=== PATIENT | male | born 1945 | race Caucasian/White ===

== ENCOUNTER → 2018-07-22 | Outpatient (CLI) | payer MEDICARE, OTHER ==
[~2018-07-22] VITALS: Ht 180.3 cm; Wt 110.7 kg
[~2018-07-22] MED LIST: ALLOPURINOL 30300 M1 PO; ARICEPT 5 MG TAB5 MG PO; BENAZEPRIL HCL20 MG PO; CELEBREX 200 M200 M1 PO; CRESTOR20 MG PO; GEMFIBROZIL 60600 M1 PO; GLIPIZIDE ER5 MG PO; METFORMIN HCL500 MG PO; PLAVIX 75 MG TA75 M1 PO; SINEMET 25-1001 EAC1 PO
[2018-07-22 10:28] LABS: ABSOLUTE BASOPHILS 0.1 thou/uL (0.0-0.2); ABSOLUTE EOSINOPHILS 0.3 thou/uL (0.0-0.7); ABSOLUTE MONOCYTES 0.9 thou/uL (0.0-1.2); ABSOLUTE NEUTROPHILS 7.8 thou/uL (1.6-8.1); BASOPHILS 1.3 %; EOSINOPHILS 2.5 %; HEMATOCRIT 42.7 % (42.0-52.0); HEMOGLOBIN 14.5 gm/dL (14.0-18.0); MCH 31.1 pg (26.0-34.0); MCV 91.5 fL (80.0-100.0); MONOCYTES 8.4 %; MPV 7.2 fl. (7.2-11.1); NUCLEATED RBCS 0 /100WBC; PLATELET COUNT* 246 thou/uL (150-400); POLYS 69.8 %; RBC 4.66 mil/uL (4.50-6.00); RDW-CV 13.2 % (10.5-14.5); WBC 11.2 thou/uL (4.0-11.0)
[2018-07-22 10:42] LABS: ALBUMIN 4.1 g/dL (3.4-5.0); CALCIUM 9.6 mg/dL (8.5-10.1); CREATININE 0.9 mg/dL (0.6-1.3); POTASSIUM 3.9 mmol/L (3.5-5.1); TOTAL BILIRUBIN 0.6 mg/dL (<0.1-1.0); TOTAL PROTEIN 8.3 g/dL (6.4-8.2)
[2018-07-22 11:31] LABS: ESR (SEDRATE) 60 mm/hr (0-20)
[2018-07-23 02:09] LABS: GLYCOHEMOGLOBIN (HGB A1C) 5.8 % (4.8-5.6)
== END ==
LOC: M.SUR → M.LAB 08:00 → M.SUR 08-03 08:24 → EDSTATUS 08-03 09:10 → M.SUR 08-03 12:45
PROVIDERS: Orthopaedic Surgery
DX: M17.11 Unilateral primary osteoarthritis, right knee (principal); Z96.651 Presence of right artificial knee joint; Z79.899 Other long term (current) drug therapy

== ENCOUNTER 2018-07-23 17:38 | Inpatient (IN) | payer MEDICARE, OTHER ==
[~2018-07-23] VITALS: Ht 180.3 cm; Wt 110.7 kg
[~2018-07-23 17:38] MED LIST changes: -CELEBREX 200 M200 M1 PO
[2018-07-23 19:00] LABS: HEMATOCRIT 41.8 % (42.0-52.0); HEMOGLOBIN 14.5 gm/dL (14.0-18.0); MCH 31.6 pg (26.0-34.0); MCHC 34.6 g/dL (28.0-37.0); MCV 91.5 fL (80.0-100.0); MPV 7.3 fl. (7.2-11.1); RBC 4.57 mil/uL (4.50-6.00); RDW-CV 13.1 % (10.5-14.5); WBC 8.9 thou/uL (4.0-11.0)
[2018-07-23 19:08] LABS: CALCIUM 9.6 mg/dL (8.5-10.1); CREATININE 0.9 mg/dL (0.6-1.3); POTASSIUM 3.5 mmol/L (3.5-5.1); PROTIME 10.7 Seconds (9.20-11.50)
[2018-07-23 19:12] LABS: ALBUMIN 3.9 g/dL (3.4-5.0); TOTAL BILIRUBIN 0.5 mg/dL (<0.1-1.0); TOTAL PROTEIN 8.2 g/dL (6.4-8.2)
[2018-07-23 19:22] VITALS: BP 194/93
[2018-07-23 20:00] VITALS: BP 161/84
[2018-07-23 23:39] VITALS: BP 194/93
[2018-07-24 02:45] VITALS: BP 194/93
[2018-07-24 03:29] LABS: URINE BILIRUBIN NEGATIVE (Negative); URINE BLOOD TRACE (Negative); URINE CLARITY CLEAR; URINE COLOR YELLOW; URINE GLUCOSE-RANDOM NEGATIVE (Negative); URINE KETONES NEGATIVE (Negative); URINE LEUKOCYTES-REFLEX NEGATIVE (Negative); URINE NITRITE-REFLEX NEGATIVE (Negative); URINE PROTEIN NEGATIVE (Negative)
[2018-07-24 06:34] VITALS: BP 194/93
[2018-07-24 08:45] VITALS: BP 151/89
[2018-07-24 15:57] VITALS: BP 143/85
[2018-07-24 20:30] VITALS: BP 181/92
[2018-07-25 06:18] VITALS: BP 164/79
[2018-07-25 08:30] VITALS: BP 162/79
--- NOTE | 2018-07-25 14:55 | EKG ---
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
[2018-07-25 16:05] VITALS: BP 161/78
[2018-07-25 17:08] LABS: BF RBC 8409 /mm3; TOTAL CELL COUNT 3354 /mm3
[2018-07-25 17:35] LABS: CLARITY SLIGHTLY HAZY; COLOR AMBER; TOTAL VOLUME 3 ml
[2018-07-25 19:28] LABS: BF MONOCYTES 5 %; BF POLYS 81 %; BODY FLUID BANDS 2 %; SOURCE SYNOVIAL
[2018-07-25 19:29] LABS: BF EOSINOPHILS 2 %; BF LYMPHOCYTES 8 %; BF TISSUE 2 /100 WBC
[2018-07-25 21:00] VITALS: BP 161/70
--- NOTE | 2018-07-26 00:58 | CON ---
[facility] [address] [place] [address] CONSULTATION Name: NANCY JACKSON Room: [address] IN M.R.#: [id number] Admission: 07/23/18 Attend Phys: Maria Eugenia Shearer Discharge: Date of : 45 Report #: [id number] THIS REPORT FOR: //name// CC: Nik Lewis DATE OF SERVICE: 07/24/2018 CONSULTATION: Infectious Diseases. HISTORY OF PRESENT ILLNESS: Mr Jackson is a 73-year-old white male admitted to [facility] on 07/23/2018 because of concern regarding septic arthritis. The patient had degenerative joint disease and was scheduled for a total knee replacement later this month. He was preparing his house, moving some furniture so will be easier to get around with the wheelchair or a walker. He says he wrenched his knee first part of the week trying to move a dresser. The knee became more painful and swollen. He notified Dr. Bell who did an arthrocentesis. This demonstrated cloudy fluid with elevated white counts. The patient was admitted for arthroscopic washout and further evaluation. Infectious Disease consultation was requested to assist with antibiotic management. PAST MEDICAL HISTORY: Significant for diabetes with hypertension, hyperlipidemia, Parkinson's disease, COPD, sleep apnea, reflux, closed head injury. ALLERGIES: THE PATIENT HAS A HISTORY OF PENICILLIN ALLERGY. FAMILY HISTORY: Noncontributory. SOCIAL HISTORY: The patient is . 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 He does smoke cigarettes approximately 1 pack per day. I discussed with the patient benefits of smoking cessation associated with upcoming surgery with reduced infections and increased healing. I also discussed benefits of smoking for diabetic in terms of reducing risk of dialysis, amputation, stroke, heart disease. The patient seemed unimpressed and is committed to continued tobacco use. The patient uses social alcohol without problems. REVIEW OF SYSTEMS: The patient denies fevers, chills, sweats. Denies any head or neck complaints. No cough, chest pain, shortness of breath. He denies angina, syncope, palpitations. He denies nausea, vomiting, diarrhea, or constipation. He has not had a bowel movement since being in the hospital. He has been mostly n.p.o. for surgery. The patient denies any urinary complaints. He has postoperative pain in his leg. He says this feels different [place] [address] CONSULTATION Name: NANCY JACKSON Room: [address] IN [facility]#: [id number] Admission: 07/23/18 Attend Phys: Maria Eugenia Shearer Discharge: Date of : 45 Report #: [id number] PHYSICAL EXAMINATION: GENERAL: The patient appears alert, oriented, comfortable, not in any distress. VITAL SIGNS: Shows no fevers were measured during this hospitalization. SKIN: Shows no rash, no lesion. ENT: Negative. MENTAL STATUS: Seems normal. He had no tremor. HEART: Sounds normal. LUNGS: Clear. ABDOMEN: Belly obese, soft, not tender. No mass, no organomegaly. EXTREMITIES: Show some mild arthritic changes, particularly in his hands. The right knee was postoperative, wrapped in a multilayered dressing with a Hemovac drain, having small to moderate amount of bloody drainage. Distal lower extremity unremarkable. MEDICATION RECONCILIATION: The patient's current medication list is as follows: He is on lisinopril 30 mg daily, donepezil 5 mg daily, allopurinol 300 mg daily, metformin 500 mg b.i.d., glipizide 5 mg b.i.d., atorvastatin 20 mg b.i.d., Sinemet 1 tab b.i.d., gemfibrozil 600 mg b.i.d. and he has been treated with Rocephin and vancomycin for his infection. He has been prescribed a flu vaccine during this hospitalization. LABORATORY STUDIES: The white count was initially 11.2, is now down to 8.9, hemoglobin 14.5. Hemoglobin A1c is 5.8. Chemistries are normal except for glucose of 161. Rheumatoid factor is negative. CRP is elevated at 138. The blood cultures x 2 are negative. Urinalysis is negative. Synovial fluid from 07/23/2018 show white count of 25,000, 94% polys, no crystals. Gram stain showed moderate white cells and red cells, but no organisms. Cultures are pending. Nasal swab for MRSA is negative. In summary, the patient with fairly sudden increase in inflammation in the knee, which he attributes to twisting the knee moving furniture. He has a history of degenerative joint disease, a history of gout. At this time, I suggest we use vancomycin perioperatively pending results of cultures. If cultures are negative, this may be attributed just to a hemarthrosis associated with trauma and may be reasonable to stop the antibiotics and observe. If there is no infection, the patient may be a candidate for his knee replacement sooner. Should he have infectious arthritis of the [place] joint, he will need at least 4 weeks of IV antibiotics followed by 4 weeks of oral antibiotics and then 6 months of observation off antibiotics before implantation of hardware. I think it may be worthwhile to discuss further with the patient the benefits of tobacco cessation, particularly perioperatively. [facility] [address] [place] [address] CONSULTATION Name: NANCY JACKSON Room: [address] IN M.R.#: [id number] Admission: 07/23/18 Attend Phys: Maria Eugenia Shearer Discharge: Date of : 45 Report #: [id number] I appreciate the opportunity of input in the care of this gentleman. Thank you for requesting Infectious Disease input. <ELECTRONICALLY SIGNED> By: Nik Mariano MD 07/26/18 0058 1207 0145Nik Mariano MD /nt
[2018-07-26 03:57] LABS: ABSOLUTE BASOPHILS 0.1 thou/uL (0.0-0.2); ABSOLUTE EOSINOPHILS 0.4 thou/uL (0.0-0.7); ABSOLUTE LYMPHOCYTES 2.4 thou/uL (0.8-5.3); ABSOLUTE MONOCYTES 0.6 thou/uL (0.0-1.2); ABSOLUTE NEUTROPHILS 4.8 thou/uL (1.6-8.1); BASOPHILS 1.2 %; EOSINOPHILS 4.3 %; HEMATOCRIT 38.1 % (42.0-52.0); HEMOGLOBIN 13.2 gm/dL (14.0-18.0); LYMPHOCYTES 29.4 %; MCH 31.5 pg (26.0-34.0); MCHC 34.5 g/dL (28.0-37.0); MCV 91.2 fL (80.0-100.0); MONOCYTES 7.7 %; MPV 7.2 fl. (7.2-11.1); NUCLEATED RBCS 0 /100WBC; PLATELET COUNT* 268 thou/uL (150-400); POLYS 57.4 %; RBC 4.17 mil/uL (4.50-6.00); RDW-CV 12.9 % (10.5-14.5); WBC 8.3 thou/uL (4.0-11.0)
[2018-07-26 06:22] LABS: ESR (SEDRATE) 90 mm/hr (0-20)
[2018-07-26 07:01] VITALS: BP 154/85
[2018-07-26 20:00] VITALS: BP 178/86
[2018-07-27] VITALS: BP 169/85
[2018-07-27 04:00] VITALS: BP 167/87
[2018-07-27 08:00] VITALS: BP 166/80
[2018-07-27 16:00] VITALS: BP 169/73
[2018-07-27 20:20] VITALS: BP 172/88
[2018-07-28 09:53] VITALS: BP 156/77
[2018-07-28 14:15] VITALS: BP 155/76
[2018-07-28 17:00] VITALS: BP 167/77
[2018-07-28 20:20] VITALS: BP 162/78
[2018-07-29 04:52] LABS: HEMATOCRIT 34.7 % (42.0-52.0); MCH 31.2 pg (26.0-34.0); MCHC 34.7 g/dL (28.0-37.0); MPV 7.1 fl. (7.2-11.1); RBC 3.85 mil/uL (4.50-6.00); RDW-CV 13.1 % (10.5-14.5); WBC 9.6 thou/uL (4.0-11.0)
[2018-07-29 05:24] LABS: ALBUMIN 3.2 g/dL (3.4-5.0); CREATININE 0.8 mg/dL (0.6-1.3); MAGNESIUM 1.8 mg/dL (1.8-2.4); POTASSIUM 4.1 mmol/L (3.5-5.1); TOTAL BILIRUBIN 0.7 mg/dL (<0.1-1.0); TOTAL PROTEIN 6.8 g/dL (6.4-8.2)
[2018-07-29 08:15] VITALS: BP 159/91
[2018-07-29] MEDS ORDERED: CELEBREX 200 M200 M1 PO (13:44)
[2018-07-29 16:02] VITALS: BP 159/91
[2018-07-29 18:51] VITALS: BP 159/91
--- NOTE | 2018-08-03 09:57 | OP ---
[facility] [address] [place] [address] OPERATIVE REPORT Name: NANCY TAYLOR Room: [address] IN .R.#: [id number] Admission: 07/23/18 Attend Phys: Maria Eugenia Shearer Discharge: 07/29/18 Date of : 45 Report #: [id number] THIS REPORT FOR: //name// CC: Nik Lewis PREOPERATIVE DIAGNOSIS: Potential septic arthritis of his right knee. POSTOPERATIVE DIAGNOSIS: Potential septic arthritis of his right knee. SURGERY PERFORMED: Right knee arthroscopic lavage and three compartment synovectomy with tissue cultures. SURGEON: Manuel Bell DO. MAIL INSERTER: Amanda Thomas DO, resident ANESTHESIA: General anesthetic. The patient had been on Rocephin just preoperatively, time scheduled antibiotics. He his Hemovac drain times 1 to the right knee. SPECIMENS: Tissue cultures. ESTIMATED BLOOD LOSS: 5 mL. COMPLICATIONS: No complications. GROSS FINDINGS: This gentleman presented initially to have a total knee arthroplasty done within a couple of weeks from now, but his preoperative labs were elevated with over 11,000 white count, 60 was a sed rate, and I called him. With those said, we need to get some new labs and have him evaluated and he said he had a swollen knee on the right side. I saw him in the office yesterday, 07/23/2018, aspirated the knee, was very murky fluid, sent that appropriately for lab results, called him with a cell count that was definitely suggestive of inflammatory versus septic arthropathy. Cell count was [address] and had over 94% polys and his new sed rate was 88 and CRP was about 130s. The patient's new synovial fluid today obtained in the OR, upon entering the knee was again that brown murky fluid. The patient, with the arthroscopic examination, demonstrated the severe inflammation throughout the knee of the synovium. SURGERY IN DETAIL: He was taken to the operating room and placed on table, given the benefit of general anesthetic. I did not use a tourniquet on this leg. He had a well-padded brace applied to the knee region, [place] [address] OPERATIVE REPORT Name: NANCY TAYLOR Room: [address] IN [facility].#: [id number] Admission: 07/23/18 Attend Phys: Maria Eugenia Shearer Discharge: 07/29/18 Date of : 45 Report #: [id number] chlorhexidine prep and sterile draping for right knee surgery. Timeout was called and verified for the right knee. A standard lateral incision was made. The arthroscopic cannula was placed up into the joint proper. The fluid was removed from the knee region and appropriately sent off for new labs again, the aerobic and anaerobic cultures etc. At this point in time, I did 6000 mL lavage irrigation from both the medial and lateral incisions and then I put the scope in the joint, looked at the synovitis and removed it with a debridement with a shaver throughout all 3 compartments. Hemovac drain was placed deep within the knee. At this point in time, sutures of 2-0 nylon were placed across post-surgery site. Xeroform, 4 x 4s, Kerlix, soft roll, sterile dressing was applied. He was transferred off table, taken to recovery in stable condition. The patient tolerated surgery well. Postoperative diagnosis is still suggestive of septic arthritis of the right knee versus severe inflammatory process. It was my pleasure seeing and taking care of this gentleman. Needle, instrument, sponge counts correct. I did speak with his afterward. <ELECTRONICALLY SIGNED> By: Manuel Bell DO 08/03/18 0957 0756 [id number] Bell DO /nt
--- NOTE | 2018-08-20 14:57 | PATH ---
[address] [address] PATHOLOGY RPT PROCEDURE Name: NANCY JACKSON Room: [address] IN M.R.#: [id number] Admission: 07/23/18 Date of : 45 Discharge: 07/29/18 Report #: [id number] Path Case #: [id number] [facility] Accession Number: [id number] . 01 Material submitted: . R KNEE TISSUE SYNOVIUM . 01 Clinician provided ICD-10: M00.861 . 01 Clinical history: . Septic arthritis . 02 Diagnosis: Tissue synovium: - Synovium and fibroadipose tissue, acute and chronically inflamed, compatible with provided clinical history of septic arthritis. (MAP:shefali; 07/27/2018) QMS/07/27/2018 . 02 Electronically signed: . Mitchel iRos MD, Pathologist NPI- [id number] . 01 Gross description: . The specimen is received in formalin, labeled "Nancy Jackson, right knee tissue synovium", are two [id number] indurated soft tissues measuring 0.5 x 0.3 x 0.1 and 0.5 x 0.5 x 0.1 cm. The specimen is entirely submitted in A1. ([facility]; 07/26/2018) SHS/SHS . 02 Pathologist provided ICD-10: M00.861 . 02 CPT . 007739 Specimen Comment: Report sent to ,DR RICHARD / DR VILLEDA Specimen Comment: A duplicate report has been generated due to demographic updates. Performed at: [address] [facility], [place], [place] [id number] MD Josiah Teague MD Phone: [phone] Performed at: [address] [facility] [address], [place], [place] [id number] MD Margarito Jarvis MD Phone: [phone]
== END 2018-07-29 17:15 | disposition home or self-care (01) | DRG 488 ==
LOC: M.ORTHSURG 17:38
PROVIDERS: Internal Medicine; Orthopaedic Surgery; ADMIT Internal Medicine
PROC: 0SBC4ZZ Excision of Right Knee Joint, Percutaneous Endoscopic Approach (ICD-10-PCS; principal; 2018-07-24)
PROC: 3E1U38Z Irrigation of Joints using Irrigating Substance, Percutaneous Approach (ICD-10-PCS; principal; 2018-07-24)
DX: M00.9 Pyogenic arthritis, unspecified (principal); R71.0 Precipitous drop in hematocrit; E11.9 Type 2 diabetes mellitus without complications; I10 Essential (primary) hypertension; E78.5 Hyperlipidemia, unspecified; G20 Parkinson's disease; M10.9 Gout, unspecified; F17.210 Nicotine dependence, cigarettes, uncomplicated; R41.3 Other amnesia; J44.9 Chronic obstructive pulmonary disease, unspecified; K21.9 Gastro-esophageal reflux disease without esophagitis; Z87.828 Personal history of other (healed) physical injury and trauma; Z88.0 Allergy status to penicillin; Z86.010 Personal history of colon polyps; Z28.21 Immunization not carried out because of patient refusal; Z79.899 Other long term (current) drug therapy

== ENCOUNTER → 2018-07-23 | Outpatient (CLI) | payer MEDICARE, OTHER ==
[2018-07-23 13:12] LABS: HEMATOCRIT 40.6 % (42.0-52.0); HEMOGLOBIN 14.1 gm/dL (14.0-18.0); MCH 31.6 pg (26.0-34.0); MCHC 34.9 g/dL (28.0-37.0); MCV 90.6 fL (80.0-100.0); MPV 7.1 fl. (7.2-11.1); RBC 4.47 mil/uL (4.50-6.00); RDW-CV 13.2 % (10.5-14.5); WBC 9.7 thou/uL (4.0-11.0)
[2018-07-23 15:02] LABS: CLARITY HAZY; COLOR AMBER; SOURCE SYNOVIAL; TOTAL VOLUME 55 ml
[2018-07-23 15:03] LABS: BF POLYS 94 %; BF RBC 5516 /mm3; BF TISSUE 6 /100 WBC
[2018-07-23 15:06] LABS: TOTAL CELL COUNT 25335 /mm3
[2018-07-24 12:13] LABS: SOURCE R KNEE
[2018-07-26 10:07] LABS: ANA INTERPRETATION Negative (Negative)
== END ==
LOC: M.LAB 12:45
PROVIDERS: Orthopaedic Surgery
DX: D72.829 Elevated white blood cell count, unspecified (principal); J84.10 Pulmonary fibrosis, unspecified

== ENCOUNTER → 2019-02-16 | Outpatient (CLI) | payer MEDICARE, OTHER ==
[~2019-02-16] MED LIST changes: +CELEBREX 200 M200 M1 PO
[2019-02-16 11:33] LABS: HEMATOCRIT 42.6 % (42.0-52.0); MCH 31.5 pg (26.0-34.0); MCHC 35.2 g/dL (28.0-37.0); MCV 89.6 fL (80.0-100.0); MPV 7.1 fl. (7.2-11.1); RBC 4.76 mil/uL (4.50-6.00); WBC 7.9 thou/uL (4.0-11.0)
== END ==
LOC: M.LAB 11:18
PROVIDERS: Orthopaedic Surgery
DX: L03.115 Cellulitis of right lower limb (principal)

== ENCOUNTER → 2019-03-15 | Outpatient (CLI) | payer MEDICARE, OTHER ==
[2019-03-03 09:32] LABS: ABSOLUTE BASOPHILS 0.1 thou/uL (0.0-0.2); ABSOLUTE EOSINOPHILS 0.3 thou/uL (0.0-0.7); ABSOLUTE LYMPHOCYTES 2.1 thou/uL (0.8-5.3); ABSOLUTE MONOCYTES 0.5 thou/uL (0.0-1.2); ABSOLUTE NEUTROPHILS 4.3 thou/uL (1.6-8.1); BASOPHILS 1.2 %; HEMATOCRIT 41.3 % (42.0-52.0); HEMOGLOBIN 14.6 gm/dL (14.0-18.0); MCH 31.6 pg (26.0-34.0); MCHC 35.4 g/dL (28.0-37.0); MCV 89.3 fL (80.0-100.0); MONOCYTES 6.8 %; MPV 7.3 fl. (7.2-11.1); NUCLEATED RBCS 0 /100WBC; PLATELET COUNT* 245 thou/uL (150-400); RBC 4.63 mil/uL (4.50-6.00); RDW-CV 13.2 % (10.5-14.5); WBC 7.3 thou/uL (4.0-11.0)
[2019-03-03 09:40] LABS: CALCIUM 9.7 mg/dL (8.5-10.1); POTASSIUM 4.2 mmol/L (3.5-5.1)
[2019-03-03 09:50] LABS: TOTAL BILIRUBIN 0.5 mg/dL (<0.1-1.0)
[2019-03-03 11:05] LABS: ESR (SEDRATE) 27 mm/hr (0-20)
[2019-03-03 17:06] LABS: GLYCOHEMOGLOBIN (HGB A1C) 6.2 % (4.8-5.6)
--- NOTE | 2019-03-03 17:40 | EKG ---
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
[~2019-03-15] VITALS: Ht 180.3 cm; Wt 104.3 kg
[~2019-03-15] MED LIST changes: +CENTRUM SILVER1 EAC2 PO; +CRESTOR40 MG PO; +ELIQUIS2.5 MG PO; +IBUPROFEN200 M1 PO; +NICOTINE TRANSD21 M1 TRANSDERM; +NORCO 5-325 TA1 EAC1 PO; +OXYCODONE HCL 55 MG PO
== END ==
LOC: M.SUR 06:29 → M.LAB 10:31 → EDSTATUS 12:47
PROVIDERS: Orthopaedic Surgery
DX: M17.11 Unilateral primary osteoarthritis, right knee (principal); G47.30 Sleep apnea, unspecified; E11.9 Type 2 diabetes mellitus without complications; M10.9 Gout, unspecified; Z86.73 Personal history of transient ischemic attack (TIA), and cerebral infarction without residual deficits

== ENCOUNTER 2019-03-18 07:32 | Inpatient (IN) | payer MEDICARE, OTHER ==
[~2019-03-18] VITALS: Ht 182.9 cm; Wt 120.6 kg
[~2019-03-18 07:32] MED LIST changes: -ELIQUIS2.5 MG PO; -NICOTINE TRANSD21 M1 TRANSDERM; -NORCO 5-325 TA1 EAC1 PO; -OXYCODONE HCL 55 MG PO
[2019-03-18 07:55] VITALS: BP 155/84
[2019-03-18 13:45] VITALS: BP 146/82
[2019-03-18 16:30] VITALS: BP 147/88
--- NOTE | 2019-03-18 17:29 | NUR ---
PATIENT ADMITTED TO ROOM 113 VIA BED S/P R TKA. ADMISSION PROCESS COMPLETED. VITALS STABLE ON 3L/NC. IV FLUIDS STARTED. PATIENT HAS HAD POOR PAIN CONTROL SINCE COMING BACK FROM SURGERY. PATIENT'S NEURO CHECKS WNL TO RIGHT LEG, CAP REFILL < 3 SEC. TEDS AND SCDS IN PLACE. FAMILY AT BEDSIDE. FALL PRECAUTIONS IN PLACE. EDUCATED PATIENT ON CPM, VERBALIZED UNDERSTANDING. HOULRY ROUNDING COMPLETED. CALL LIGHT WITHIN REACH. WILL CONTINUE WITH PLAN OF CARE.
[2019-03-18 21:00] VITALS: BP 157/77
[2019-03-19] VITALS: BP 154/67
[2019-03-19 04:13] LABS: HEMATOCRIT 32.6 % (42.0-52.0); HEMOGLOBIN 11.5 gm/dL (14.0-18.0)
[2019-03-19 04:26] VITALS: BP 140/69
--- NOTE | 2019-03-19 05:30 | NUR ---
PT ALERT AND ORIENTED. VITALS STABLE WITH 3L O2 BY NC. MEDS GIVEN ORDERED. PAIN CONTROLLED WITH HYDROCODONE. DRESSING ON RT KNEE CLEAN AND DRY. POLAR CARE, SCDS IN PLACE. PT WORKED ON CPM FOR AN HOUR BEFORE GOING TO SLEEP. NO VOIDING ISSUES. HOURLY ROUNDING COMPLETED. WILL CONTINUE TO MONITOR.
--- NOTE | 2019-03-19 14:16 | NUR ---
SW met with pt, pt , and other pt friends/family present to complete initial assessment, introduce self, and SW/CM role. Pt was alert, oriented, although in pain and wanting to rest so pt Lorelei discussed information and dc planning with SW. Pt lives at home with and has a RW and cane. Pt said that she is hopeful for pt to be able to have OP therapy [place] up [place], there is an OP clinic near there home and she could provide transportation. SW to continue to follow to assist with safe dc planning.
[2019-03-19 16:30] VITALS: BP 161/74
--- NOTE | 2019-03-19 19:00 | NUR ---
PATIENT COOPERATIVE THIS SHIFT W/ ASSESS AND CARES. PHYSICAL THERAPY THIS AM. PATIENT TO CHAIR AFTER, UPON RETURN TO ROOM, PATIENT NOTED IN BED. STATES SHE ASST PATIENT TO BED. /PATIENT REEDUCATED ON USING CALL LIGHT FOR STAFF ASST W/ TRANSFERS. PATIENT HAVING UNCONTROLLED PAIN THIS AFTERNOON. PATIENT IN BED. PATIENT UNABLE TO USE CPM THIS SHIFT, REFUSED D/T PAIN ISSUES. SEE MAR FOR PAIN CONTROL. 1830: PATIENT NOTED RESTING W/ EYES CLOSED, RESPS EVEN AND UNLABORED. HOB UP TO PATIENT COMFORT. DRSG TO RT KNEE NOTED WNL. TEDS AND POLAR PACK ON. IV CATH SITE NOTED WNL. IV SL THIS AFTERNOON, PATIENT PHIL MEALS. PRESENT IN RM W/ PATIENT MOST OF SHIFT. ~TJRN
[2019-03-19 20:00] VITALS: BP 161/82
[2019-03-20] VITALS: BP 172/77
[2019-03-20 04:00] VITALS: BP 156/76
--- NOTE | 2019-03-20 04:38 | NUR ---
ASSUMED CARES AT 1920. ALERT AND ORIENTED X 4. S/P RIGHT TKA. WBAT RLE. HAS SIGNIFICANT PAIN TO RIGHT KNEE/LEG. PAIN MEDS GIVEN NEEDED. SALINE LOCK TO LEFT FOREARM. BLE TEDS. POLAR PACK TO RIGHT KNEE. USED URINAL. MOD ASSIST WITH GAIT BELT AND WALKER. TRANSFERS MORE DIFFICULT DUE TO PAIN. WANTED UP TO RECLINER AND STAYED UP FOR 4 HOURS BEFORE GETTING BACK TO BED. ATTEMPTED BM BUT JUST PASSED GAS. LAST BM ON 03/18/19. SLEPT SOME. CALL LIGHT IN REACH. BED ALARM ON.
[2019-03-20 04:46] LABS: HEMATOCRIT 31.4 % (42.0-52.0); HEMOGLOBIN 11.3 gm/dL (14.0-18.0)
[2019-03-20 09:10] VITALS: BP 174/73
[2019-03-20 17:04] VITALS: BP 185/73
--- NOTE | 2019-03-20 18:40 | NUR ---
PATIENT COOPERATIVE W/ CARES AND ASSES THIS SHIFT. SEE MAR FOR PAIN MED INTERVENTION. REFUSED CPM, "STATES IF IT WILL MAKE IT HURT, I'M NOT DOING IT". PATIENT STATES BEING ANXIOUS THIS AFTERNOON, "I'VE GOT TO GET OUT OF THIS DAMN ROOM". ESCORTS PATIENT IN HALLS PER WC. PATIENT STATES THIS HELPED. UP TO CHAIR THIS AM AND PM. USING FWW W/ GAIT BELT W/ TRANSFERS AND AMBULATION. PATIENT NEEDS MOD CUEING ON APPROP USE OF WALKER. POLAR PACK USED TO RT KNEE THRU SHIFT. EATING WELL. IV SL NOTED WNL. PRESENT THRU MOST OF SHIFT. HRLY ROUNDS COMPLETED.~TJRN
[2019-03-21] VITALS (7 sets, daily range): BP systolic 110–188; BP diastolic 50–91
--- NOTE | 2019-03-21 05:46 | NUR ---
PT ALERT AND ORIENTED. BP HIGH BEGINING OF SHIFT. DR VILLEDA NOTIFED. LISINOPRIL GIVEN. PAIN MEDS GIVEN. RELIEF NOTED. DR VILLEDA PUT IN A ONETIME DOSE OF TORADOL PRN FOR PAIN. I DID NOT HAVE TO GIVE THAT PT RESPNODED WELL TO PRIOR PAIN MEDS. [employer] PARK IN PLACE. FABIAN HOSE IN PLACE. FALL PRECAUTION IN PLACE. CALL LIGHT WITHIN REACH. HOURLY ROUNDINGS MADE. WILL CONTINUE TO MONITOR.
[2019-03-21] MEDS ORDERED: NICOTINE TRANSD21 M1 TRANSDERM (13:08)
[2019-03-21] MEDS ORDERED: NORCO 5-325 TA1 EAC1 PO (13:21)
[2019-03-21] MEDS ORDERED: ELIQUIS2.5 MG PO (13:25)
[2019-03-21] MEDS ORDERED: OXYCODONE HCL 55 MG PO (13:26)
--- NOTE | 2019-03-21 13:57 | NUR ---
PT.TO DISCHARGE TODAY WITH HOME HEALTH. DISCUSSED HOME [facility]AT[facility] AGENCIES AND HE CHOSE [facility] THEY GO TO HOUSE. SPOKE WITH JENNIFER/[facility] AND FAXED HER FACE SHEET,H*P,OP REPORT,FACT TO FACE FORM DISCHARGE ORDERS AND MED LIST TO HER. THERAPIST RECOMMENDED CPM SO PT.COULD GET MORE ROM. [facility] CALLED AND ORTHOPEDICS OKD IT. THERAPIST SHOWED PT.AND HOW TO USE IT. CM CALLED IN ELIQUIS TO PT'S PHARMACY-[facility] IN [place] [phone]. COPAY WAS $200. CALLED IN COUPON TO PHARMACY. THEY RAN IT AND WENT THROUGH FOR $0. GAVE TO PT.S . SHE WAS APPRECIATIVE.
--- NOTE | 2019-03-21 16:32 | NUR ---
ASSUMED CARE AT 0730. ALERT ORIENTED PLEASANT COOPERATIVE. HX OF RTK DRESSING C//D/I WBATRLE. TRANSFERS WITH 1 ASSIST G BELT WALKER, IS EXPERIENCING A GREAT DEAL OF PAIN MEDICATED X 2 FOR RT. KNEE PAIN WITH SOME RELIEF WORKING WITH THERAPIES P.T. X 2. CPM MACHINE ON X 1 HR. DISCHARGE INSTRUCTIONS WRITTEN AND PT. VERBALIZES UNDERSTANDING ALLOWED TIME FOR QUESTIONS. DISMISSED AT 1520 WITH TO HOME WITH CPM AND BELONGINGS.
--- NOTE | 2019-03-23 12:43 | OP ---
[facility] [address] [place] [address] OPERATIVE REPORT Name: NANCY TAYLOR Room: [address]#: [id number] Admission: 03/18/19 Attend Phys: Maria Eugenia Shearer Discharge: 03/21/19 Date of : 45 Report #: [id number] THIS REPORT FOR: //name// CC: Manuel Lewis DICTATED BY: Victor Hugo Key DO DATE OF SERVICE: 03/18/2019 PREOPERATIVE DIAGNOSIS: Right knee advanced degenerative joint disease. POSTOPERATIVE DIAGNOSIS: Right knee advanced degenerative joint disease. PROCEDURE: Right total knee arthroplasty utilizing the Hallie Persona total knee system with the following components: 1. Size 10 CR right femoral component. 2. Size G right tibia baseplate. 3. A 12 mm vitamin E polyethylene tibial insert. 4. A 35 mm round patella polyethylene button. 5. Two bags of Palacos bone cement with 2 grams of vancomycin powder mixed in due to previous history of septic arthritis. SURGEON: Manuel Bell DO BUTTON MACHINE OPERATOR: Victor Hugo Key DO ANESTHESIA: General. ANTIBIOTICS: 1.75 grams of vancomycin IV intraoperatively after obtaining our synovial specimens and cultures. SPECIMENS: Intraoperative right knee intra-articular culture sent for stat Gram stain, which was negative for any bacteria and multiple synovial tissue specimens sent for stat pathology, which displayed essentially 0-1 PMNs per high-powered field, not consistent with infection. DRAINS: None. COMPLICATIONS: None. DISPOSITION: Stable to PACU and will be admitted to the hospital for standard postoperative care. TOURNIQUET TIME: 55 minutes at 300 [place] [address] OPERATIVE REPORT Name: NANCY TAYLOR Room: [address] IN [facility].#: [id number] Admission: 03/18/19 Attend Phys: Maria Eugenia Shearer Discharge: 03/21/19 Date of : 45 Report #: [id number] INDICATIONS FOR PROCEDURE: The patient is a pleasant 74-year-old male who was seen multiple times in Orthopedic Clinic with complaints of chronic right knee pain. Unfortunately, he had a history of septic arthritis to his alturas right knee, which required arthroscopic lavage multiple times and IV antibiotics that took place roughly around 07/2018. He is improved from that episode, but continued to have lingering right knee pain that was impacting his quality of life and in performing activities that he wishes to. X-rays displayed advanced DJD with joint space narrowing most notably in the medial compartment and his pain was refractory to conservative measures consisting of oral anti-inflammatories, activity modifications, home physical therapy exercises and intra-articular corticosteroid injections for much greater than 6 months' duration. Therefore, we recommended proceeding with a right total knee arthroplasty for which the patient presents today. Risks, benefits, complications, indications and alternative treatments were discussed and the patient wished to proceed with surgery today. Of note, due to the patient's previous history of a alturas right septic knee, we were prepared to perform a possible antibiotic spacer if our intraoperative culture for Gram stain and intraoperative pathology specimens were concerning which they came back negative and were not concerning for any sort of infection. Therefore, we went ahead with a right total knee arthroplasty, primary implantation. DESCRIPTION OF PROCEDURE: The patient was seen in the preoperative holding area. Correct operative site, right knee was initialed. The patient was taken to the operating suite, placed in supine position on the operating table, given benefit of general anesthesia, well-padded tourniquet was placed to the right upper thigh. Right lower extremity was then prepped and draped in typical fashion. Surgery began with a time-out, identifying correct patient, correct procedure, correct operative site, preoperative antibiotics and correct performing surgeon. Next, tourniquet was inflated. Skin was incised with an anterior midline longitudinal incision directly over the anterior aspect of the right knee, starting roughly 3-4 fingerbreadths proximal to the superior pole of the patella, extending down to the tibial tubercle. Skin was incised with a 10 blade scalpel down to the level of the prepatellar fascia. A standard medial parapatellar arthrotomy was performed. Patella was everted. Cultures were sent for stat Gram stain at this time. Multiple tissue specimens of the synovium of the right knee were sent for a stat essentially frozen section pathology to look for a number of PMNs per high-power field. These results came back negative with no bacteria noted on the stat Gram stain and essentially 0-1 PMNs per high-powered field, not consistent with any sort of infection. Therefore, we proceeded with the standard right total knee arthroplasty in the usual fashion. We introduced the distal femoral intramedullary reamer followed by the intramedullary cutting guide for the distal femur. This was pinned into place with 5 degrees of rotation, took an 11 mm cut. [place] [address] OPERATIVE REPORT Name: NANCY TAYLOR Room: [address] [place] [facility]#: [id number] Admission: 03/18/19 Attend Phys: Maria Eugenia Shearer Discharge: 03/21/19 Date of : 45 Report #: [id number] A distal femoral cut was performed in the usual fashion. Next, attention was turned to the proximal tibia. Extramedullary tibial guide was centered over the medial third of the tibial tubercle down the tibial crest down the center of the talus in line with the second metatarsal. A 10 mm resection was measured off the high lateral side. Cutting block was pinned into place. A proximal tibia cut was performed in a normal fashion protecting all ligamentous and neurovascular structures. Next, attention was turned back to the femur after trialing a 10 mm extension spacing block, which provided full extension and rather good balance with varus and valgus testing. We then placed the AP sizer, which measured roughly a size 10 for femur and drilled the guide holes in 3 degrees of external rotation. A 4-in-1 cutting block was then impacted into place in normal fashion. It was pinned into place and anterior, posterior chamfer cuts were performed in a normal fashion. All bony debris was removed. Menisci were excised. Remaining PCL was excised at this time as well. The trial tibia component was pinned into place in appropriate amount of rotation followed by trial femoral component. A 10 mm polyethylene spacer was inserted at this time. The knee did have some extra play with mid flexion, but was rather stable to varus and valgus stress testing. All osteophytes were removed off the medial tibia and medial femur. Next, a patella was resurfaced and cut utilizing a freehand oscillating saw technique in a normal fashion. It was measured to the above-mentioned size and drilled and a trial patella was inserted. Patella was seen to be tracking appropriately. Tibia was then drilled and punched in normal fashion. All trial components were removed. Knee was thoroughly irrigated with pulsatile lavage. Cement was mixed on the back table. Final components were then cemented into place starting first at the tibia followed by the femur and patella. All excess cement was removed. A 12-mm polyethylene spacer was then inserted to allow for compression. The knee was held in full extension while cement had hardened. The knee was taken through range of motion and felt to have full extension, full flexion, good mid flexion stability with anterior and posterior drawer type testing, and stable and symmetric with varus valgus testing with a 12 mm polyethylene spacer. Therefore, we placed the final 12 mm polyethylene tibial spacer at this time. This was locked into place in the normal fashion. Knee was then thoroughly irrigated. Tourniquet was deflated. TXA was placed in normal fashion. Betadine solution wash was irrigated followed by normal irrigation. The capsule was closed in a [id number] fashion with #1 Vicryl suture and one or two #1 Tycron sutures at the superomedial corner of the patella and the subcutaneous tissues were closed in a simple inverted fashion with a 2-0 Monocryl suture. A running 3-0 subcuticular Stratafix suture was performed on the skin followed by Dermabond superficially on the skin. Standard dressings were applied consisting of Mepilex and a FABIAN hose. The patient was weaned from general anesthesia, [place] [address] OPERATIVE REPORT Name: NANCY TAYLOR Room: [address] [facility]#: [id number] Admission: 03/18/19 Attend Phys: Maria Eugenia Shearer Discharge: 03/21/19 Date of : 45 Report #: [id number] transferred in stable condition to the PACU. All sponge and needle counts were correct x 2. <ELECTRONICALLY SIGNED> By: Manuel Bell DO 03/23/19 [id number] [id number] magnus Andrade
== END 2019-03-21 15:20 | disposition home health service (06) | DRG 470 ==
LOC: M.SUR 07:32 → M.ORTHSURG 11:23 → M.TBA 11:23 → M.SUR 11:38 → M.ORTHSURG 14:01
PROVIDERS: Orthopaedic Surgery; ADMIT Internal Medicine
PROC: 0SRC0J9 Replacement of Right Knee Joint with Synthetic Substitute, Cemented, Open Approach (ICD-10-PCS; principal; 2019-03-18)
DX: M17.11 Unilateral primary osteoarthritis, right knee (principal); I10 Essential (primary) hypertension; J44.9 Chronic obstructive pulmonary disease, unspecified; G20 Parkinson's disease; E11.9 Type 2 diabetes mellitus without complications; G47.30 Sleep apnea, unspecified; F17.210 Nicotine dependence, cigarettes, uncomplicated; Z79.1 Long term (current) use of non-steroidal anti-inflammatories (NSAID); Z79.84 Long term (current) use of oral hypoglycemic drugs; Z79.899 Other long term (current) drug therapy; Z86.010 Personal history of colon polyps; Z80.9 Family history of malignant neoplasm, unspecified